=== PATIENT | female | born 1965 | race Caucasian/White ===

== ENCOUNTER 2020-05-29 09:55 | Outpatient (CLI) | payer BC, SELFPAY ==
--- NOTE | ~2020-05-29 | MM_ITS ---
EXAMINATION: MM screening brittny BI w best HISTORY: Screening TECHNIQUE: Craniocaudal and mediolateral oblique 3-D tomosynthesis images were obtained and synthetic 2-D images were generated. CAD analysis was submitted and interpreted. COMPARISON: No prior mammogram is available for comparison at this institution. BREAST PARENCHYMAL COMPOSITION: There are scattered areas of fibroglandular density. FINDINGS: There is asymmetry in the upper outer quadrant of the right breast. There is no mammographi c evidence for malignancy in the left breast. There are no suspicious calcifications. IMPRESSION: 1. Asymmetry in the upper outer quadrant of the right breast. 2. Additional mammographic views and possible breast ultrasound are recommended. BI-RADS Category 0: Incomplete: Needs additional imaging evaluation. Reviewed, dictated and finalized at location A. IMPRESSION: 1. Asymmetry in the upper outer quadrant of the right breast. 2. Additional mammographic views and possible breast ultrasound are recommended . BI-RADS Category 0: Incomplete: Needs additional imaging evaluation.
--- NOTE | ~2020-05-29 | DEXA_ITS ---
Bone Density Report Name: Fani Cruz Age: 55 Sex: Female Ethnicity: White Date of : 1965 Indication: postmenopausal; height loss; prior fracture; Referring Provider: GIRISH, RAMON Study: Bone densitometry was performed. Exam Date: May 29, 2020 Accession number: [id number] Bone Density: Region BMD T-score Z-score Classification AP Spine (L1-L4) 1.018 -0.3 0.7 Normal Femoral Neck (Left) 0.761 -0.8 0.2 Normal Total Hip (Left) 0.866 -0.6 0.0 Normal Total Hip Bilateral Avg 0.877 -0.6 0.1 Normal Femoral Neck (Right) 0.779 -0.6 0.4 Normal Total Hip (Right) 0.887 -0.5 0.2 Normal World Health Organization criteria for BMD impression classify patients as: Normal (T-score at or above -1.0), Osteopenia (T-score between -1.0 and -2.5), or Osteoporosis (T-score at or below -2.5). 10-year Fracture Risk: FRAX not reported because: All T-scores for Spine Total, Hip Total, Femoral Neck at or above -1.0 Clinical Information Provided by Patient: Has had a low trauma fracture Has used the following medications: Vitamin D, Calcium Patient maximum height was 66 Menopause Age: 53 Onset of menses at age 13 Number of children 1 Impression: The patient has normal bone mass. The patient has risk factors, including: previous fracture. Discussion: BONE DENSITY IS ABOVE THE MINIMUM DESIRABLE LEVEL AT ALL SKELETAL SITES TESTED. This patient?s bone mineral density is above the minimum desirable level (T-score -1.0 or better) at all sites measured. The patient should follow a healthful lifestyle (good nutrition with adequate calcium and vitamin D, and appropriate weight-bearing exercise). Follow-Up: Consider repeating this study in 5 years or sooner if there is some new clinical indication. Reported by: [facility] on 05/29/2020 10:30:00 AM. Reviewed, dictated and finalized at location AAnibal SANDOVAL
== END 2020-05-29 09:56 | disposition home or self-care (01) ==
LOC: ANHIMG 09:59
PROVIDERS: PCP Internal Medicine; Visit Provider Nurse Practitioner
DX: Z12.31 Encounter for screening mammogram for malignant neoplasm of breast (principal); M85.88 Other specified disorders of bone density and structure, other site; R92.8 Other abnormal and inconclusive findings on diagnostic imaging of breast
CPT/HCPCS: 77063; 77067; 77080

== ENCOUNTER 2020-06-28 11:52 | Outpatient (CLI) | payer BC, SELFPAY ==
--- NOTE | ~2020-06-28 | MMUS_ITS ---
EXAMINATION: MM diagnostic mammo unilat RT, US breast RT limited HISTORY: Asymmetry reported in upper outer quadrant right breast on 05/29/2020 bilateral digital scree randee mammogram examinations TECHNIQUE: Additional 3-D tomosynthesis images of the right breast were performed and synthetic 2-D i mages were generated. CAD analysis was submitted and interpreted. High resolution upper outer and low er-outer quadrants right breast ultrasound was performed. COMPARISON: 05/29/2020 bilateral digital screening mammogram FINDINGS: MAMMOGRAPHIC FINDINGS: No reproducible mass lesion is detected on these supplemental diagnostic mammographic views. ULTRASOUND: No suspicious mass or shadowing is evident. IMPRESSION: 1. No evidence of malignancy 2. Routine mammographic screening is recommended. BI-RADS Category 2: Benign finding(s). Reviewed, dictated and finalized at location A. IMPRESSION: 1. No evidence of malignancy 2. Routine mammographic screening is recommended. BI-RADS Category 2: Benign finding(s).
== END 2020-06-28 11:53 | disposition home or self-care (01) ==
LOC: ANHIMG 11:53
PROVIDERS: PCP Internal Medicine; Visit Provider Obstetrics & Gynecology Gynecology
DX: R92.8 Other abnormal and inconclusive findings on diagnostic imaging of breast (principal)
CPT/HCPCS: 76642; 77065

== ENCOUNTER 2021-10-25 08:02 | Outpatient (CLI) | payer BC, SELFPAY ==
--- NOTE | ~2021-10-25 | MM_ITS ---
EXAMINATION: MM screening brittny BI w best HISTORY: Screening TECHNIQUE: Craniocaudal and mediolateral oblique 3-D tomosynthesis images were obtained and synthetic 2-D images were generated. CAD analysis was submitted and interpreted. COMPARISON: Comparison to multiple prior studies sequentially, with oldest reviewed study dated 05/29. BREAST PARENCHYMAL COMPOSITION: There are scattered areas of fibroglandular density. FINDINGS: There is no evidence of suspicious mass, calcification, or architectural distortion to sugg est malignancy in either breast. There has been no suspicious interval change. IMPRESSION: 1. No mammographic evidence of malignancy. 2. Recommend routine screening mammography in one year. BI-RADS Category 1: Negative Reviewed, dictated and finalized at location A. DESIGN SPECIALIST
== END 2021-10-25 08:03 | disposition home or self-care (01) ==
LOC: ANHIMG 08:05
PROVIDERS: PCP Internal Medicine; Visit Provider Nurse Practitioner
DX: Z12.31 Encounter for screening mammogram for malignant neoplasm of breast (principal)
CPT/HCPCS: 77063; 77067

== ENCOUNTER 2022-01-05 13:21 | Emergency (ER) | payer BC, SELFPAY ==
--- NOTE | ~2022-01-05 | XR_ITS ---
EXAMINATION: XR elbow RT min 3V INDICATION: Right elbow pain TECHNIQUE: Four views of the right elbow are obtained. COMPARISON: None available FINDINGS: There is an acute, traumatic, closed, nondisplaced fracture involving the lateral aspect of the radial head. A joint effusion is present. No additional fracture is identified. IMPRESSION: 1. Acute nondisplaced radial head fracture with elbow joint effusion. Reviewed, dictated and finalized at location A.
[2022-01-05 13:33] VITALS: BP 114/57; PULSE 60; RESP 18; TEMP 36.9; O2SAT 100
--- NOTE | 2022-01-05 13:54 | ED.GENADULT ---
HPI - General Adult General Chief complaint: Extremity Injury, Upper Stated complaint: fall Time Seen by Provider: 01/05/22 13:54 Source: patient Mode of arrival: ambulatory Limitations: no limitations History of Present Illness HPI narrative: 56-year-old female presented for complaint of right elbow pain after fall today. She states she was tripped as she was walking, she landed on concrete and gravel. She states she landed on her hands and knees, but fell hard. She denies hitting her head or loss of consciousness. Endorses abrasions to palms and knees. Endorses difficulty and increased pain when straightening her arm at the elbow. Taken ibuprofen for pain. Denies numbness, tingling, or weakness of the extremity. Related Data Home Medications Medication Instructions Recorded Confirmed metoprolol succinate 25 mg PO DAILY 01/05/22 01/05/22 Allergies Allergy/AdvReac Type Severity Reaction Status Date / Time fluticasone Allergy Severe SLURRED Verified 01/05/22 14:04 SPEECH, WEAKNESS salmeterol Allergy Severe SLURRED Verified 01/05/22 14:04 SPEECH, WEAKNESS tramadol Allergy Severe SLURRED Verified 01/05/22 14:04 SPEECH WEAKNESS levofloxacin Allergy Mild DIARRHEA Verified 01/05/22 14:04 TAPE Allergy Intermediate BLISTERS Uncoded 01/05/22 14:04 Review of Systems Review of Systems: CONSTITUTIONAL: Denies body aches, fever, chills EYES: Denies visual changes ENT: Denies rhinorrhea, congestion CARDIOVASCULAR: Denies chest pain, palpitations, or edema. RESPIRATORY: Denies cough or dyspnea. GASTROINTESTINAL: Denies abdominal pain, nausea, vomiting, or diarrhea. SKIN: Denies rash, itching, or wounds. MUSCULOSKELETAL: Reports right elbow pain NEUROLOGIC: Denies headache, numbness, tingling, or weakness. PSYCH: Denies depression or anxiety. All systems reviewed & are unremarkable except as noted in HPI and below PMFSH Comments At time of signature, I have reviewed and agree with nursing past medical, surgical, social and family history unless otherwise noted. Please see nursing chart for further information. There is no relevant family history pertinent to the presenting complaint Exam Narrative: GENERAL: Appears in pain, no acute distress. HEAD: Normocephalic, atraumatic. EYES: conjunctivae clear NECK: Supple. CHEST: Speaks in full sentences. No respiratory distress. HEART: Regular rate and rhythm. Normal and equal peripheral pulses. EXTREMITIES: Right upper extremity has normal strength and sensation, limited normal range of motion with flexion/extension/rotation at the elbow due to pain with movement. Pt guards the right elbow, keeping it bent and close. Tenderness to medial aspect of the elbow. Mild elbow edema, no ecchymosis. No open wounds to the right upper extremity, skin tenting, or obvious deformity; alignment normal, pulse palpable and equal bilaterally, skin warm, dry, pink. Capillary refill less than 3 seconds. SKIN: Bilateral knees and palms with minimal abrasions NEURO: Alert and oriented x3. PSYCH: Normal mood and affect Course Course Emergency Course: Patient is aware of diagnosis, understands and agrees to treatment plan. Anticipatory guidance given. Patient agrees to follow-up as directed and is aware of reasons to seek care at the emergency department. Portions of this record may have been created with voice recognition software Level of Care: Express Care Visit Vital Signs Vital signs: Vital Signs Temperature 98.4 F 01/05/22 13:33 Pulse Rate 60 01/05/22 13:33 Respiratory Rate 18 01/05/22 13:33 Blood Pressure 114/57 L 01/05/22 13:33 Pulse Oximetry 100 01/05/22 13:33 Temperature 98.4 F 01/05/22 13:33 Pulse Rate 60 01/05/22 13:33 Respiratory Rate 18 01/05/22 13:33 Blood Pressure 114/57 L 01/05/22 13:33 Pulse Oximetry 100 01/05/22 13:33 Reviewed Procedures Orthopedic Splinting/Casting Injury #1: Splinting/C
== END 2022-01-05 14:30 | disposition home or self-care (01) ==
PROVIDERS: Emergency Provider Nurse Practitioner Family; PCP Internal Medicine
DX: S52.124A Nondisplaced fracture of head of right radius, initial encounter for closed fracture (principal); W01.0XXA Fall on same level from slipping, tripping and stumbling without subsequent striking against object, initial encounter; I34.1 Nonrheumatic mitral (valve) prolapse
CPT/HCPCS: 29105; 73080; 99214; A4565; G0463

== ENCOUNTER 2022-07-14 10:41 | Emergency (ER) | payer BC, SELFPAY ==
[2022-07-14 11:14] VITALS: BP 124/57; PULSE 79; RESP 18; TEMP 36.5; O2SAT 100
--- NOTE | 2022-07-14 11:56 | ED.SKABFB ---
HPI - Skin/Abscess/Foreign Bdy General Chief complaint: Skin/Abscess/Foreign Body Stated complaint: rash Time Seen by Provider: 07/14/22 11:56 Source: patient Mode of arrival: ambulatory Limitations: no limitations History of Present Illness HPI narrative: 57 year old female presented for complaint of rash over body surface, first noted today. Rash is red, with small round itchy spots; no pain or drainage. States she noticed it when she got out of the shower, denies spreading since onset. States it stops at both elbows and knees. She has completed 7 days of the 10 day course of Bactrim for sinus infection. She also endorses sleeping in a hotel 3 nights ago and was concerned about bed bugs or detergent reaction. States her does not have any rash or lesions. Also has changed her body soap 1 week ago. She denies lip, tongue, throat swelling, itching, wheezing, shortness of breath, nausea or fevers. Has not taken anything for the rash today. Related Data Home Medications Medication Instructions Recorded Confirmed metoprolol succinate 25 mg 25 mg PO DAILY 01/05/22 07/14/22 tablet,extended release 24 hr Allergies Allergy/AdvReac Type Severity Reaction Status Date / Time fluticasone Allergy Severe SLURRED Verified 01/27/22 13:24 SPEECH, WEAKNESS salmeterol Allergy Severe SLURRED Verified 01/27/22 13:24 SPEECH, WEAKNESS tramadol Allergy Severe SLURRED Verified 01/27/22 13:24 SPEECH WEAKNESS levofloxacin Allergy Mild DIARRHEA Verified 01/27/22 13:24 Sulfa (Sulfonamide Allergy Rash Verified 07/14/22 11:42 Antibiotics) TAPE Allergy Intermediate BLISTERS Uncoded 01/27/22 13:24 Review of Systems Review of Systems: CONSTITUTIONAL: Denies body aches, fever, chills, or sweats. EYES: Denies visual changes, redness, or discharge. ENT: Denies rhinorrhea, congestion CARDIOVASCULAR: Denies chest pain, palpitations, or edema. RESPIRATORY: Denies cough or dyspnea. GASTROINTESTINAL: Denies abdominal pain, nausea, vomiting, or diarrhea. SKIN: reports rash MUSCULOSKELETAL: Denies back pain, joint pain, or myalgia. NEUROLOGIC: Denies headache, numbness, tingling, or weakness. 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 Please see nursing chart for further information. There is no relevant family history pertinent to the presenting complaint Exam Narrative: GENERAL: Well-appearing HEAD: Normocephalic, atraumatic. EYES: conjunctivae clear, and EOMI. ENT: Mucous membranes moist. Oropharynx without edema, erythema or lesions. NECK: Supple. No lymphadenopathy CHEST: Clear to auscultation. HEART: Regular rate and rhythm. SKIN: Warm, dry. Diffuse maculopapular rash over trunk, neck, arms and legs. The rash spares the arms distal to the elbows and legs distal to the knees. No lip, tongue or throat swelling. NEURO: Alert and oriented x3. Course Course Emergency Course: Patient is aware of diagnosis, understands and agrees to treatment plan. Anticipato
== END 2022-07-14 12:24 | disposition home or self-care (01) ==
PROVIDERS: Emergency Provider Nurse Practitioner Family; PCP Internal Medicine
DX: R21 Rash and other nonspecific skin eruption (principal); I48.91 Unspecified atrial fibrillation; E78.5 Hyperlipidemia, unspecified
CPT/HCPCS: 99213; G0463

== ENCOUNTER 2025-01-13 15:03 | Outpatient (CLI) | payer OTHER, SELFPAY ==
--- NOTE | ~2025-01-13 | MM_ITS ---
EXAMINATION: MM screening [facility] BI w best HISTORY: Screening TECHNIQUE: Craniocaudal and mediolateral oblique 3-D tomosynthesis images were obtained and synthetic 2-D images were generated. CAD analysis was submitted and interpreted. COMPARISON: Comparison to multiple prior studies sequentially, with oldest reviewed study dated 05/29. BREAST PARENCHYMAL COMPOSITION: Not dense: There are scattered areas of fibroglandular density. FINDINGS: There is no evidence of suspicious mass, calcification, or architectural distortion to sugg est malignancy in either breast. There has been no suspicious interval change. IMPRESSION: 1. No mammographic evidence of malignancy. 2. Recommend routine screening mammography in one year. BI-RADS Category 1: Negative Reviewed, dictated and finalized at location A.
--- OUTSIDE RECORDS SUMMARY | 2025-01-13 15:07 | XMS_ITS | Encounter Summary ---
Author Organization [facility] Address [address] [place] [address] Care Team Providers Care Candle Wicker Name Role Phone Teto Chew MD Primary Care Provider [phone] Encounter Details Date Type Department Care Team (Late st Contact Info) Description 11/14/2024 [facility] [address] [place] [address] Omid Longo MA Social History Tobacco Use Types Packs/Day Years Used Date Smoking Tobacco: Never Smokeless Tobacco: Never Alcohol Use Standard Drinks/Week Comments Not Currently 0 (1 standard drink = 0.6 oz pur e alcohol) Comments Unknown Sex and Gender Information Value Date Recorded Sex Assigned at Female 10/31/2024 8:40 AM DISPENSING OPTICIAN Legal Sex Female 3:35 PM DISPENSING OPTICIAN Gender Identity Not on file Sexual Orientation Not on file documented as of this encounter Plan of Treatment Upcoming Encounters Date Type Department Care Team (Late st Contact Info) Description 10/30/2025 8:00 AM DISPENSING OPTICIAN Appointment [facility] [place] [address] Ashli Wild MD Three [facility] [address] [place] [address] 11/06/2025 9:30 AM DISPENSING OPTICIAN Office Visit [facility], [address] [place] [address] Ashli Wild MD [facility] [address] [place] [id number] documented as of this encounter Procedures Procedure Name Priority Date/Time Associated Diagnosis Comments TSH (OUTSIDE LAB) Routine 11/11/2024 CBC (OUTSIDE LAB) Routine 11/11/2024 COMPREHENSIVE METABOLIC PANEL Routine 11/11/2024 LIPID PANEL Routine 11/11/2024 documented in this encounter Results * LIPID PANEL (11/11/2024) Pathologist [facility] CHOLESTEROL 227 HDL 67 TRIGLYCERIDES 109 NON HDL CHOLESTEROL 160 LDL (CALCULATED) 137 11/11/2024 us Default History Genericprovider LABORATORY Edited Result - Final * COMPREHENSIVE METABOLIC PANEL (11/11/2024) Pathologist [facility] SODIUM S/P/B 144 POTASSIUM S/P/B 4.3 CO2 30 CHLORIDE S/P/B 105 GLUCOSE 87 mg/dL CALCIUM S/P/B 9.6 BUN 16 CREATININE S/P/B 0.84 0.5 - 1.0 GFR ESTIMATE 80 ALKALINE PHOSPHATASE S/P/B 64 ALT 15 AST 20 BILIRUBIN TOTAL S/P/B 0.5 ALBUMIN S/P/B 4.5 3.5 - 5.0 TOTAL PROTEIN S/P/B 6.5 GLOBULIN 2.0 11/11/2024 us Default History Genericprovider LABORATORY Edited Result - Final * TSH (OUTSIDE LAB) (11/11/2024) Pathologist [facility] TSH 1.13 11/11/2024 us Default History Genericprovider LAB-OUTSIDE/ABST RACTED Edited Result - Final * CBC (OUTSIDE LAB) (11/11/2024) WBC 8.8 HGB 14.0 HCT 42.6 PLT 323 11/11/2024 us Default History Genericprovider LAB-OUTSIDE/ABST RACTED Final Result documented in this encounter Visit Diagnoses Not on filedocumented in this encounter Care Teams Candle Wicker Relationship Specialty Start Date End Date Teto Chew MD [address] [place] [address] PCP - General INTERNAL MEDICINE 08/08/24 documented as of this encounter
--- OUTSIDE RECORDS SUMMARY | 2025-01-13 15:07 | XMS_ITS | Clinical Summary ---
Author Organization [facility] Address [address] [place] [address] Care Team Providers Care Manager Electronic Name Role Phone Teto Chew MD Primary Care Provider [phone] Allergies Active Allergy Reactions Criticality Noted Date Comments Altretamine Unknown 08/06/2020 Fluticasone-Salmeterol Other (see comment) 09/04 Slurred speech and left sided weakness Sulfa Antibiotics Rash Low 07/14/2022 Tramadol Other (see comment),Unknown 09/18/2017 'Slurred speech and left sided numbness Medications Calcium Carb-Cholecalcif darcy 600-20 MG-MCG Chew Tab Take by mouth Active Cholecalciferol 1.25 MG (27191 UT) Tab Active multi vitamin/minerals (VITAMINS/MINERA LS) tablet Take 1 tablet by mouth. Active metoprolol succinate ER (TOPROL-XL) 25 MG 24 hr tablet Take 1 tablet (25 mg total) by mouth daily. 90 tablet 3 10/31/2024 Active Active Problems Problem Noted Date Diagnosed Date Nonrheumatic aortic valve insufficiency 11/13/19 24 Nonrheumatic mitral valve regurgitation 11/13/19 24 Palpitations 11/13/2023 Mitral valve prolapse 08/09/2020 Encounters Date Type Department Care Team Description 11/15/2024 Telephone [facility], [facility] [address] [place] [address] Ashli Wild MD Lab Results 11/14/2024 Abstract [facility], [facility] [address] [place] [address] Omid Longo MA 10/31/2024 9:00 AM SPIRAL WEAVER Office Visit [facility], [facility] [address] [place] [address] Ashli Wild MD Consult 10/31/2024 Travel from Last 3 Months Family History Medical History Relation Comments CHF Paternal Grandmother Relation Status Comments Brother Alive Father (Age 72) Maternal Grandfather Maternal Grandmother Mother (Age 74) Paternal Grandfather Paternal Grandmother Sister Alive Social History Tobacco Use Types Packs/Day Years Used Date Smoking Tobacco: Never Smokeless Tobacco: Never Tobacco Cessation:Counseling Given: Not Answered Alcohol Use Standard Drinks/Week Comments Not Currently 0 (1 standard drink = 0.6 oz pur e alcohol) Comments Unknown Sex and Gender Information Value Date Recorded Sex Assigned at Female 10/31/2024 8:40 AM SPIRAL WEAVER Legal Sex Female 3:35 PM SPIRAL WEAVER Gender Identity Not on file Sexual Orientation Not on file Last Filed Vital Signs Vital Sign Reading Time Taken Comments Blood Pressure 136/78 10/31/2024 9:06 AM SPIRAL WEAVER Pulse 67 10/31/2024 9:06 AM SPIRAL WEAVER Temperature - - Respiratory Rate - - Oxygen Saturation - - Inhaled Oxygen Concentration - - Weight 50.8 kg (112 lb) 10/31/2024 9:06 AM SPIRAL WEAVER Height 165.1 cm (5' 5 ) 10/31/2024 9:06 AM SPIRAL WEAVER Body Mass Index 18.64 10/31/2024 9:06 AM SPIRAL WEAVER Plan of Treatment Upcoming Encounters Date Type Department Care Team (Late st Contact Info) Description 10/30/2025 8:00 AM SPIRAL WEAVER Appointment [facility] [place] [place] [address] Ashli Wild MD Three [facility] [address] [place] [address] 11/06/2025 9:30 AM SPIRAL WEAVER Office Visit [facility], [facility] [address] [place] [address] Ashli Wild MD Three [facility] [address] [place], [place] [address] Health Maintenance Due Date Last Done Comments Colorectal Cancer Screening Colonoscopy (10 Years) 1966 Annual Physical 1969 Pneumococcal Vaccine: Pediatrics (0 to 5 Years) and At-Risk Patients (6 to 64 Years) (1 of 2 - PCV) 1972 Hepatitis C 1984 Hepatitis B Vaccines (1 of 3 - 19+ 3-dose series) 1985 Zoster Vaccines (1 of 2) 2016 Cervical Cancer Screening Pap Smear (Age 30 to 64) Every 3 Years 09/11/2020 09/11/2017 Mammogram Screening 03/09/2021 03/09/2019, 8 Cervical Cancer Screening Pap with HPV Testing (Age 30 to 64) Every 5 Years 09/11/2022 09/11/2017 Cervical Cancer Screening with HPV 09/11/2022 COVID-19 Vaccine ( season) 2024 04/21/2022, 09/03/2021, 01/07/2021, Additional history exists DTaP, Tdap and Td Vaccines (2 - Td or Tdap) 11/12/2032 11/12/2022 Meningococcal B Vaccine Aged Out No l onger eligible based on patient's age to complete this topic Meningococcal Vaccine Aged Out No skyler carlos eligible based on patient's age to complete this topic RSV Immunizations Under 20 Months Aged Out No longer eligible based on patient's age to complete this topic Procedures Procedure Name Priority Date/Time Associated Diagnosis Comments LIPID PANEL Routine 11/11/2024 COMPREHENSIVE METABOLIC PANEL Routine 11/11/2024 TSH (OUTSIDE LAB) Routine 11/11/2024 CBC (OUTSIDE LAB) Routine 11/11/2024 ELECTROCARDIOGRAM (NON MIDMARK ACQUIRED) Routine 10/31/2024 9:08 AM SPIRAL WEAVER Mitral valve prolapse Nonrheumatic aortic valve insufficiency Nonrheumatic mitral valve regurgitation Palpitations from Last 3 Months Results * TSH (OUTSIDE LAB) (11/11/2024) Pathologist [facility] TSH 1.13 11/11/2024 Default History Genericprovider LAB-OUTSIDE/ABST RACTED Edited Result - Final * CBC (OUTSIDE LAB) (11/11/2024) Pathologist [facility] WBC 8.8 HGB 14.0 HCT 42.6 PLT 323 11/11/2024 [facility] History Genericprovider LAB-OUTSIDE/ABST RACTED Final Result * COMPREHENSIVE METABOLIC PANEL (11/11/2024) Pathologist [facility] SODIUM S/P/B 144 POTASSIUM S/P/B 4.3 CO2 30 CHLORIDE S/P/B 105 GLUCOSE 87 mg/dL CALCIUM S/P/B 9.6 BUN 16 CREATININE S/P/B 0.84 0.5 - 1.0 GFR ESTIMATE 80 ALKALINE PHOSPHATASE S/P/B 64 ALT 15 AST 20 BILIRUBIN TOTAL S/P/B 0.5 ALBUMIN S/P/B 4.5 3.5 - 5.0 TOTAL PROTEIN S/P/B 6.5 GLOBULIN 2.0 11/11/2024 Default History Genericprovider LABORATORY Edited Result - Final * LIPID PANEL (11/11/2024) Pathologist [facility] CHOLESTEROL 227 HDL 67 TRIGLYCERIDES 109 NON HDL CHOLESTEROL 160 LDL (CALCULATED) 137 11/11/2024 Default History Genericprovider LABORATORY Edited Result - Final * ELECTROCARDIOGRAM (10/31/2024 9:08 AM SPIRAL WEAVER) 10/31/2024 9:08 AM SPIRAL WEAVER Narrative [facility] - 11/05/2024 6:38 AM SPIRAL WEAVER [facility] Test Date: 2024-10-31 Pat Name: FANI CRUZ Department: 112 Room: Gender: Female Jig Maker: : 1965 Requested By: ASHLI WILD Order Number: [id number] Reading MD: Jose Sorensen Measurements Intervals [place] Rate: 71 P: 69 MN: 155 QRS: 85 QRSD: 89 T: 51 QT: 383 QTc: 418 Interpretive Statements SINUS RHYTHM POSSIBLE LEFT ATRIAL ENLARGEMENT No prior ECG for comparison AL WEAVER Procedure Note Jose Sorensen MD - 11/05/2024 [facility] Test Date: 2024-10-31 Pat Name: FANI CRUZ Department: 112 Room: Gender: Female Jig Maker: : 1965 Requested By: ASHLI WILD Order Number: [id number] Reading MD: Jose Sorensen Measurements Intervals [place] Rate: 71 P: 69 MN: 155 QRS: 85 QRSD: 89 T: 51 QT: 383 QTc: 418 Interpretive Statements SINUS RHYTHM POSSIBLE LEFT ATRIAL ENLARGEMENT No prior ECG for comparison AL WEAVER Ashli Wild MD PROCEDURES-ORDERABLE NO GIOVANI RGE Final Result ALEA GUPTA from Last 3 Months Insurance [facility] Care Teams Manager Electronic Relationship Specialty Start Date End Date Teto Chew MD [address] [place] [address] PCP - General INTERNAL MEDICINE 08/08/24
--- OUTSIDE RECORDS SUMMARY | 2025-01-13 15:07 | XMS_ITS | Clinical Summary ---
Author Organization [facility] Physician Office Building [address] [place] [address] Care Team Providers Care Pipe Connector Name Role Phone Teto Chew MD Primary Care Provider [phone] Allergies Active Allergy Reactions Criticality Noted Date Comments Adhesive Tape-Silicones Other (See comments) Low Blistering with steri strips Fluticasone Propion-Salmeterol Unknown 01/01/2018 Altretamine Unknown 08/06/2020 Tramadol Unknown 01/01/2018 Medications loratadine (CLARITIN) 10 mg tablet Take 1 tablet (10 mg total) by mouth daily Active multivitamin capsule Take 1 capsule by mouth daily Active calcium carbonate-vitam in D3 600 mg (1,500 mg)-800 unit tablet,chewable Take by mouth Active pz-3-qld-epa-fi sh oil-vit D3 ([place]-3 + Vitamin D3) 31.25-117-100 mg-mg-unit tablet,chewable Take by mouth Active [id number] ORAL Take by mouth Active metoprolol XL (TOPROL-XL) 25 mg extended release tablet Take 1 tablet (25 mg total) by mouth daily 90 tablet 3 09/24/2023 Active Active Problems Problem Noted Date Diagnosed Date Nonrheumatic mitral valve regurgitation 11/13/19 24 Nonrheumatic aortic valve insufficiency 11/13/19 24 MVP (mitral valve prolapse) 11/13/2023 Palpitations 11/13/2023 Acute right-sided low back p ain with right-sided sciatica-L4/L5 dist 04/05/2019 DDD (degenerative disc disease), lumbar-L4-5 11/2018 Surgical History Surgery Date Site/Laterality Comments BUNIONECTOMY bilateral KNEE ARTHROSCOPY Right Medical History Medical History Date Comments Mitral valve prolapse Basal cell carcinoma Hypoglycemia Family History Medical History Relation Name Comments Cancer Father Breast cancer Mother COPD Mother Relation Name Status Comments Father Mother Social History Tobacco Use Types Packs/Day Years Used Date Smoking Tobacco: Never Smokeless Tobacco: Never Tobacco Cessation:Counseling Given: Not Answered Alcohol Use Standard Drinks/Week Comments Never 0 (1 standard drink = 0.6 oz pur e alcohol) AUDIT-C Answer Date Recorded Frequency of Alcohol Consumption Never 08/06/2020 Average Number of Drinks Not on file 020 Frequency of Binge Drinking Not on file 11/2019 PHQ-2 Answer Date Recorded PHQ-2 Score 0 05/26/2019 Comments No Sex and Gender Information Value Date Recorded Sex Assigned at Not on file Legal Sex Female 1:45 PM PRODUCT MANAGER E COMMERCE Gender Identity Not on file Sexual Orientation Not on file Obstetrics History Para Term AB IAB SAB Ectopic Multiple Livin g Live Births 1 1 1 Date Outcome GA Total Labor Labor/2nd/3rd Weight Sex Type Anes PTL Carol A1 A5 Name Clin Term Last Filed Vital Signs Vital Sign Reading Time Taken Comments Blood Pressure 108/58 11/13/2023 9:31 AM PRODUCT MANAGER E [employer]ERCE Pulse 57 11/13/2023 9:31 AM PRODUCT MANAGER E [employer] Temperature 36.8 C (98.3 F) 08/06/2020 1:38 PM PRODUCT MANAGER E [employer]ERCE Respiratory Rate 16 11/10/2022 8:14 AM PRODUCT MANAGER E [employer]ERCE Oxygen Saturation 91% 11/10/2022 8:14 AM PRODUCT MANAGER E [employer]CE Inhaled Oxygen Concentration - - Weight 51.7 kg (114 lb) 11/13/2023 9:31 AM PRODUCT MANAGER E [employer]ERCE Height 165.1 cm (5' 5 ) 11/13/2023 9:31 AM PRODUCT MANAGER E [employer]ERCE Body Mass Index 18.97 11/13/2023 9:31 AM PRODUCT MANAGER E [employer]ERCE Plan of Treatment Health Maintenance Due Date Last Done Comments Cervical Cancer Screening 1966 Colon Cancer Screening-Colonoscopy 1966 Hepatitis C Screening 1966 Hepatitis B Screening 1984 Regular Well Visit/Exam 18-64 1984 Zoster Vaccine (1 of 2) 2016 Depression Screening 04/05/2020 04/05/2019 Breast Cancer Screening-Mammogram 05/29/2021 05/29/2020, 03/09/2019, 01/01/2018, Additional history exists Covid-19 Vaccine ( - season) 2024 01/07/2021, 12/17/2020 Influenza Vaccine (#1) 2024 08/23/2021 DTaP/Tdap/Td Vaccine (2 - Td or Tdap) 11/12/2032 11/12/2022 Pneumococcal vaccine <65 Aged Out No longer eligible based on patient's age to complete this topic Procedures Procedure Name Priority Date/Time Associated Diagnosis Comments SCREENING MAMMOGRAM BILATERAL W UCHE Schedule Routine, Read Routine (OP Routine) 03/09/2019 4:58 PM CDT Encounter for screening mammogram for malignant neoplasm of breast from Last 3 Months or Most Recently Relevant to Health Maintenance Results * Screening Mammogram Bilateral W [place] (03/09/2019 4:58 PM CDT) Anatomical Region Laterality Modality Breast Bilateral Mammography 03/10/2019 7:00 AM CDT Impressions 03/10/2019 7:01 AM CDT BI-RADS CATEGORY I: NEGATIVE EXAM. RECOMMEND ROUTINE FOLLOW-UP. Electronically signed by: Lemuel Zhang M.D. Narrative 03/10/2019 7:01 AM CDT SCREENING MAMMOGRAM BILATERAL W UCHE HISTORY: Routine screening, no current complaints. COMPARISON: 01/01/2018, 07/09/2016 FINDINGS: Breast density: Heterogeneously dense. There has been no significant interval change. There are no suspicious masses, microcalcifications, or architectural distortions. Tomographic images demonstrate no additional findings. Digital technology was employed plus computer aided detection software (R2) was utilized in interpretation of these images. This facility utilizes a reminder system to notify patient's of yearly mammograms. us Yaa Payne MD IMG MAMMO PROCEDURES Fin al Result from Last 3 Months or Most Recently Relevant to Health Maintenance Insurance Flinja MD [facility] Flinja MD ANTHEM ACCESS [facility] Care Teams Pipe Connector Relationship Specialty Start Date End Date Teto Chew MD [address] [place] [address] [place] [address] PCP - General 12/25/17
--- OUTSIDE RECORDS SUMMARY | 2025-01-13 15:07 | XMS_ITS | Clinical Summary ---
Author Organization [facility] Address [address] [place] [address] Phone Care Team Providers Care Print Developer Automatic Name Role Phone Teto Chew MD Primary Care Provider Allergies Active Allergy Reactions Criticality Noted Date Comments Fluticasone-Salmeterol Unknown 07/07/2022 Sulfa Antibiotics Rash 07/14/2022 Tramadol Unknown 07/07/2022 Medications metoprolol Succinate (TOPROL-XL) 25 MG TABLET SR 24 HR Take 25 mg by mouth daily. Active loratadine (CLARITIN) 10 MG Tablet Take 10 mg by mouth daily. Active Active Problems Problem Noted Date Diagnosed Date Generalized osteoarthritis 08/09/2020 Mitral valve prolapse 08/09/2020 Immunizations Immunization Administration Dates Next Due Influenza Vaccine, Quadrivalent, PF 08/23/2021 TDAP Vaccine 11/12/2022 Family History Medical History Relation Name Comments No Known Problems Brother No Known Problems Sister Relation Name Status Comments Brother Alive Father Mother Sister Alive Social History Tobacco Use Types Packs/Day Years Used Date Smoking Tobacco: Never Smokeless Tobacco: Never Alcohol Use Standard Drinks/Week Comments Not Currently 0 (1 standard drink = 0.6 oz pur e alcohol) Sexually Active Control Partners Comments Not Currently Comments No Sex and Gender Information Value Date Recorded Sex Assigned at Not on file Legal Sex Female 10:26 PM CDT Gender Identity Not on file Sexual Orientation Not on file Last Filed Vital Signs Vital Sign Reading Time Taken Comments Blood Pressure 106/62 07/07/2022 2:19 PM CDT Pulse 76 07/07/2022 2:19 PM CDT Temperature 36.9 C (98.4 F) 07/07/2022 2:19 PM CDT Respiratory Rate - - Oxygen Saturation 95% 07/07/2022 2:19 PM CDT Inhaled Oxygen Concentration - - Weight 53.5 kg (118 lb) 07/07/2022 2:19 PM CDT Height 165.1 cm (5' 5 ) 07/07/2022 2:19 PM CDT Body Mass Index 19.64 07/07/2022 2:19 PM CDT Plan of Treatment Health Maintenance Due Date Last Done Comments Hepatitis C Virus (HCV) Screening 1966 Hepatitis B Immunization (1 of 3 - 19+ 3-dose series) 1985 Pap Smear 1987 Cervical Cancer Screening (CCS) 1996 HPV/Cotest 1996 Colonoscopy 2011 Colorectal Cancer Screening 2011 Cologuard 2016 Immunochemical Fecal Occult Blood 2016 Pneumococcal Immunization (50+ years) (1 of 1 - PCV) 2016 Zoster Immunization (1 of 2) 2016 Mammogram 03/10/2024 03/10/2023, 10/06, 05/29/2020, Additional history exists SARS-COV-2 Immunization ( season) 2024 04/21/2022, 09/03/2021, 01/07/2021, Additional history exists Influenza Immunization (Season Ended) 2025 08/23/2021 Td Immunization Every 10 Years (Adults With 1 Tdap) 11/12/2032 11/12/2022 Respiratory Syncytial Virus (RSV) Immunization (Adult) (1 - 1-dose 75+ series) 2041 DTaP/Tdap/Td Immunization Discontinued 11/12/2022 Meningococcal Immunization (ACWY) Aged Out No longer eligible based on patient's age to complete this topic Rotavirus Immunization Aged Out No lo nger eligible based on patient's age to complete this topic Procedures Procedure Name Priority Date/Time Associated Diagnosis Comments MAMMOGRAM BILATERAL GENERIC 03/10/2023 12:00 AM CDT from Last 3 Months or Most Recently Relevant to Health Maintenance Results * MAMMOGRAM BILATERAL MISCELLANEOUS (03/10/2023 12:00 AM CDT) 03/10/2023 us Provider Scan IMG MAMMO ORDERABLES Final Resul t SCAN from Last 3 Months or Most Recently Relevant to Health Maintenance Insurance [facility] Care Teams Print Developer Automatic Relationship Specialty Start Date End Date Teto Chew MD [address] [place] [address] PCP - General Internal Medicine 07/07/22
--- OUTSIDE RECORDS SUMMARY | 2025-01-13 15:07 | XMS_ITS | Clinical Summary ---
Author Organization [facility] Address [address] [place] [address] Care Team Providers Care Psychiatric Lpn Name Role Phone Teto Chew MD Primary Care Provider [phone] Allergies Active Allergy Reactions Criticality Noted Date Comments Adhesive Tape-Silicones Other (See Comments) Blistering with steri strips Fluticasone Propion-Salmeterol Other (See Comments) 09/18/2017 Slurred speech and left sided weakness Tramadol Other (See Comments) 09/18/2017 'Slurred speech and left sided numbness Medications metoprolol succinate (TOPROL XL) 25 mg Extended Release 24 hour tablet Take 25 mg by mouth. Active multivitamin-mi nerals (VITAMINS AND MINERALS) tablet Take 1 Tablet by mouth. Active cholecalciferol , vitamin D3, 50,000 unit Tablet Take by mouth. Active Riboflavin Powder Take by mouth. Active loratadine (CLARITIN) 10 mg tablet Take 10 mg by mouth daily. Active pregabalin (LYRICA) 75 mg Capsule Take 1 Capsule (75 mg) by mouth every 12 hours. 60 Capsule 2 07/18/2019 Active Active Problems No known active problems Social History Tobacco Use Types Packs/Day Years Used Date Smoking Tobacco: Never Smokeless Tobacco: Never Comments No Sex and Gender Information Value Date Recorded Sex Assigned at Not on file Legal Sex Female 8:56 AM CDT Gender Identity Not on file Sexual Orientation Not on file Last Filed Vital Signs Vital Sign Reading Time Taken Comments Blood Pressure 131/86 05/31/2019 10:18 AM CDT Pulse 84 05/31/2019 10:18 AM CDT Temperature - - Respiratory Rate - - Oxygen Saturation - - Inhaled Oxygen Concentration - - Weight 55.9 kg (123 lb 3.2 oz) 05/31/2019 10:18 AM CDT Height 165.1 cm (5' 5 ) 05/31/2019 10:18 AM CDT Body Mass Index 20.5 05/31/2019 10:18 AM CDT Plan of Treatment Health Maintenance Due Date Last Done Comments DTAP/TDAP/TD VACCINES (1 - Tdap) 1985 HEPATITIS B VACCINES (1 of 3 - 19+ 3-dose series) 12/1984 HPV/Cotest (21-29) 1987 CERVICAL CANCER SCREENING 1996 HPV/Cotest (30-65) 1996 PAP SMEAR 1996 BREAST CANCER SCREENING 2006 COLORECTAL SCREENING 2011 Colorectal Cancer Screening 2011 FIT-DNA Q 3 years 2011 FIT/FOBT Q 1 year 2011 Flex Sig/CT Colonography Q 5 years 2011 ZOSTER VACCINE (1 of 2) 2016 INFLUENZA VACCINE (#1) 2024 Insurance BLUE ACCESS/TRUE BLUE PPO Care Teams Psychiatric Lpn Relationship Specialty Start Date End Date Teto hCew MD [address] [place] [id number] PCP - General Internal Medicine 05/27/19
--- OUTSIDE RECORDS SUMMARY | 2025-01-13 15:07 | XMS_ITS | Clinical Summary ---
Author Organization [facility] Address [address] [place] [address] Care Team Providers Care Water Tester Name Role Phone Teto Chwe MD Primary Care Provider [phone] Source Comments [facility]non-owned Affiliates and Associated Physician Practices is amultiple site organization consisting of ambulatory clinics and hospital sitesin [place], [place], [place] and [place]. This disclosure is being madepursuant to the Care Everywhere program and may not contain all information available regarding this patient. Last updated 18.[facility] Allergies Active Allergy Reactions Criticality Noted Date Comments Adhesive Sensitivity Other 09/18/2017 Blistering with steri strips Advair Diskus Other 09/18/2017 Slurred speech and left sided weakness Tramadol Other 09/18/2017 'Slurred speech and left sided numbness Medications * Be aware that medications may not be up to date on this document. Alwaysverify current medications with the patient. Medication Sig Dispensed Refills Start Date End Date Status Cholecalciferol (VITAMIN D3 ULTRA POTENCY) 72963 UNITS Acti ve multivitamin daily (THERAGRAN) tablet Take 1 tablet by mouth daily with food Active Riboflavin (B2 PO) Active pregabalin (LYRICA) 75 MG capsule Take 75 mg by mouth 3 times daily Active HYDROcodone-acetamino phen (NORCO) 5-325 MG tablet Take 1 tablet by mouth every 4 hours as needed for Pain 10 tablet 08/02/2019 Active metoprolol succinate XL 24hr (TOPROL XL) 25 MG tablet TAKE 1 TABLET BY MOUTH EVERY DAY 90 tablet 1 01/14/2020 Active Social History Tobacco Use Types Packs/Day Years Used Date Smoking Tobacco: Never Smokeless Tobacco: Never Alcohol Use Standard Drinks/Week Comments No 0 (1 standard drink = 0.6 oz pur e alcohol) Sex and Gender Information Value Date Recorded Sex Assigned at Not on file Gender Identity Not on file Sexual Orientation Not on file Last Filed Vital Signs Vital Sign Reading Time Taken Comments Blood Pressure 131/71 08/02/2019 5:30 PM CDT Pulse 78 08/02/2019 5:30 PM CDT Temperature 36 C (96.8 F) 08/02/2019 4:11 PM CDT Respiratory Rate 20 08/02/2019 5:30 PM CDT Oxygen Saturation 95% 08/02/2019 5:30 PM CDT Inhaled Oxygen Concentration - - Weight 54.8 kg (120 lb 12.8 oz) 019 11:39 AM CDT Height 165.1 cm (5' 5 ) 08/02/2019 11:3 9 AM CDT Body Mass Index 20.1 08/02/2019 11:39 AM CDT Plan of Treatment Health Maintenance Due Date Last Done Comments COLOGUARD (AGES 45-75) - COL ON CA SCREENING 1966 COLON MONITORING 1966 COLONOSCOPY - COLON CA SCREENING 1966 CT COLONOGRAPHY - COLON CA SCREENING 1966 Colorectal Cancer Screening 1966 FIT - COLON CA SCREENING 1966 FLEX SIG - COLON CA SCREENING 1966 LIPID TESTING 1966 MAMMOGRAM 1966 PAP SMEAR 1966 HIV SCREENING 1981 HEPATITIS C SCREENING 04/01/1984 DTAP/TDAP/TD VACCINES (1 - Tdap) 1985 HEPATITIS B VACCINE (1 of 3 - 19+ 3-dose series) 1985 PNEUMOCOCCAL VACCINE 50+ (1 of 1 - PCV) 2016 ZOSTER VACCINE (1 of 2) 2016 COVID-19 VACCINE ( - 2023-2 5 season) 2024 DEPRESSION SCREENING 10/05/2024 INFLUENZA VACCINE (Season Ended) 2025 HIB VACCINE Aged Out No longer eligi ble based on patient's age to complete this topic HPV VACCINE Aged Out No longer eligi ble based on patient's age to complete this topic MENINGOCOCCAL (Group B) VACC INE SHARED DECISION-MAKING Aged Out No longer eligibl e based on patient's age to complete this topic MENINGOCOCCAL GROUPS A/C/Y/W VACCINE Aged Out No longer eligible b ased on patient's age to complete this topic PNEUMOCOCCAL VACCINE Aged Out No long er eligible based on patient's age to complete this topic Medical Devices Implanted Type Area Rope Tow Operator Device Identifier Shelf Expiration Date Model / Serial / Lot Screw Bn 3.5mm 24mm Dart-Fire Sm Hd Implanted:Qty: 1 on 09/22/2017 by Kayla Healy MD at [facility] Left: Foot [employer] [id number] / / Tenfuse Pip Allograft 2.0 X 15mm Angled Implanted:Qty: 1 on 09/22/2017 by Kayla Healy MD at [facility] Left: Foot [employer] 06/26/2018 [id number] / / [id number] Description:THIRD METATARSAL IMPLANT Plate 0d Med 47mm 3di Fsn Lopro Comp Implanted:Qty: 1 on 09/22/2017 by Kayla Healy MD at [facility] Left: Foot [employer] [id number] / / Screw 2.7mm 14mm Lng Ft Ft/Ankl Paul 3di Implanted:Qty: 3 on 09/22/2017 by Kayla Healy MD at [facility] Left: Foot [employer] [id number] / / Screw 2.7mm 18mm Lng Ft Ft/Ankl Paul 3di Implanted:Qty: 1 on 09/22/2017 by Kayla Healy MD at [facility] Left: Foot [employer] [id number] / / Screw 2.7mm 14mm Paul Lopro Bone Implanted:Qty: 1 on 09/22/2017 by Kayla Healy MD at [facility] Left: Foot [employer] [id number] / / Screw 2.7mm 12mm Lng Paul Ankl/Ft 3di Implanted:Qty: 1 on 09/22/2017 by Kayla Healy MD at [facility] Left: Foot [employer] [id number] / / Tenfuse Pip Allograft 2.0 15mm Angled Implanted:Qty: 1 on 09/22/2017 by Kayla Healy MD at [facility] Left: Foot [employer] 05/08/2018 [id number] / / [id number] Description:SECOND MATATARSA L IMPLANT Plate Lopro Mtp Rt Tpr Contr Ortholoc Ti Implanted:Qty: 1 on 08/02/2019 by Kayla Healy MD at [facility] Right: Foot [employer] [id number] / / Screw 2.7mm 16mm Ft Slf-Tap Lck Pa On Implanted:Qty: 1 on 08/02/2019 by Kayla Healy MD at [facility] Right: Foot [employer] [id number] / / Screw 3.5mm 24mm P/T Comp Lag Ft/Ankl Implanted:Qty: 1 on 08/02/2019 by Kayla Healy MD at [facility] Right: Foot [employer] [id number] / / Screw 2.7mm 12mm Ft Slf-Tap Lck Pa On Implanted:Qty: 2 on 08/02/2019 by Kayla Healy MD at [facility] Right: Foot [employer] [id number] / / Screw 3.5mm 2.5mm 14mm Ft Slf-Tap Lopro Implanted:Qty: 1 on 08/02/2019 by Kayla Healy MD at [facility] Right: Foot [employer] [id number] / / Tenfuse Pip 2.7 X 18mm Angl Implanted:Qty: 1 on 08/02/2019 by Kayla Healy MD at [facility] Right: Foot 08/19/2020 [id number] / / [id number] Tenfuse Pip 2.7 X 18mm Angl Implanted:Qty: 1 on 08/02/2019 by Kayla Healy MD at [facility] Right: Foot [employer] 04/15/2021 [id number] / / [id number] Explanted Type Area Rope Tow Operator Device Identifier Shelf Expiration Date Model / Serial / Lot Pin Fx 1.4mm Ortholoc 3di Sm Temp Disp Explanted:Qty: 2 on 09/22/2017 at [facility] Left: Foot [employer] [id number] / / Wire Fx 150mm 1.1mm Krsh Dart-Fire Explanted:Qty: 1 on 09/22/2017 at [facility] Left: Foot [employer] [id number] / / Wire Fx 150mm 1.4mm Krsh Dart-Fire Explanted:Qty: 1 on 09/22/2017 at [facility] Left: Foot [employer] [id number] / / Screw 2.7mm 14mm Ft Slf-Tap Pa On [place] Explanted:Qty: 1 on 08/02/2019 at [facility] Right: Foot [employer] [id number] / / Screw 2.7mm 16mm Ft Slf-Tap Pa On [place] Explanted:Qty: 1 on 08/02/2019 at [facility] Right: Foot [employer] [id number] / / Wire K 1.4mm 150mm Troc Blnt Fx Explanted:Qty: 2 on 08/02/2019 at [facility] Right: Foot [employer] [id number] / / Pin Fx 1.1mm Ortholoc 3di Sm Temp Disp Explanted:Qty: 2 on 08/02/2019 at [facility] Right: Foot [employer] [id number] / / Care Teams Water Tester Relationship Specialty Start Date End Date Teto Chew MD [address] [place] [address] PCP - General Internal Medicine 07/26/19
--- OUTSIDE RECORDS SUMMARY | 2025-01-13 15:07 | XMS_ITS | Referral Summary ---
Author Organization [facility] Physician Office Building [address] [place] [address] Care Team Providers Care Sliver Machine Operator Name Role Phone Teto Chew MD Primary Care Provider [phone] Allergies Active Allergy Reactions Criticality Noted Date [...] mg)-800 unit tablet,chewable Take by mouth Active pf-0-sek-epa-fi sh oil-vit D3 ([place]-3 + Vitamin D3) 31.25-117-100 mg-mg-unit tablet,chewable Take by mouth Active [id number] ORAL Take by mouth Active metoprolol XL [...] 04/05/2019 DDD (degenerative disc disease), lumbar-L4-5 11/2018 Social History Tobacco Use Types Packs/Day Years Used Date Smoking Tobacco: Never Smokeless Tobacco: Never Tobacco Cessation:Counseling Given: Not Answered Alcohol Use Standard Drinks/Week Comments Never 0 (1 standard drink = 0.6 oz pur e alcohol) AUDIT-C Answer Date Recorded Frequency of Alcohol Consumption Never 08/06/2020 Average Number of Drinks Not on file Frequency of Binge Drinking Not on file 11/2019 PHQ-2 Answer Date Recorded PHQ-2 Score 0 05/26/2019 Comments No Sex and Gender Information Value Date Recorded Sex Assigned at Not on file Legal Sex Female 1:45 PM SKEIN DRIER Gender Identity Not on file Sexual Orientation Not on file Last Filed Vital Signs Vital Sign Reading Time Taken Comments Blood Pressure 108/58 11/13/2023 9:31 AM SKEIN DRIER Pulse 57 11/13/2023 9:31 AM SKEIN DRIER Temperature 36.8 C (98.3 F) 08/06/2020 1:38 PM SKEIN DRIER Respiratory Rate 16 11/10/2022 8:14 AM SKEIN DRIER Oxygen Saturation 91% 11/10/2022 8:14 AM SKEIN DRIER Inhaled Oxygen Concentration - - Weight 51.7 kg (114 lb) 11/13/2023 9:31 AM SKEIN DRIER Height 165.1 cm (5' 5 ) 11/13/2023 9:31 AM SKEIN DRIER Body Mass Index 18.97 11/13/2023 9:31 AM SKEIN DRIER Plan of Treatment Not on file Procedures Procedure Name Priority Date/Time Associated Diagnosis [...] Most Recently Relevant to Health Maintenance Insurance [facility] Address: [address] [place] [address] [facility] [employer] Care Teams Sliver Machine Operator Relationship Specialty Start Date End Date Teto Chew MD [address] [place] [address] PCP - General 12/25/17
== END 2025-01-13 15:04 | disposition home or self-care (01) ==
PROVIDERS: PCP Internal Medicine; Visit Provider Nurse Practitioner
DX: Z12.31 Encounter for screening mammogram for malignant neoplasm of breast (principal)
CPT/HCPCS: 77063; 77067